=== PATIENT | male | born 1955 | race Caucasian/White ===

== ENCOUNTER 2017-10-01 07:32 | Emergency (ER) | payer OTHER ==
[~2017-10-01] VITALS: Ht 170.2 cm; Wt 95.3 kg
[~2017-10-01 07:32] MED LIST: ALLEGRA-D1 TAB.SR1 PO; IBUPROFEN800 MG PO; NASONEX17 GM NS; ORPH100T PO; zithromax PO
== END 2017-10-01 11:20 | disposition home or self-care (01) ==
LOC: ER 07:32
DX: M25.552 Pain in left hip (principal)

== ENCOUNTER → 2017-11-11 | Emergency (ER) | payer OTHER ==
[~2017-11-11] VITALS: Ht 170.2 cm; Wt 95.3 kg
== END | disposition home or self-care (01) ==
LOC: ER 17:57
DX: K52.9 Noninfective gastroenteritis and colitis, unspecified (principal)

== ENCOUNTER 2019-07-29 19:49 | Emergency (ER) | payer OTHER ==
[~2019-07-29] VITALS: Ht 170.2 cm; Wt 98.9 kg
== END 2019-07-29 21:52 | disposition home or self-care (01) ==
LOC: ER 19:49
DX: S83.204A Other tear of unspecified meniscus, current injury, left knee, initial encounter (principal); X50.9XXA Other and unspecified overexertion or strenuous movements or postures, initial encounter; Y93.89 Activity, other specified; Y92.89 Other specified places as the place of occurrence of the external cause; Y99.8 Other external cause status